=== PATIENT | female | born 1995 | race African-American/Black ===

== ENCOUNTER 2021-09-30 07:02 | Emergency (ER) | payer OTHER ==
[2021-09-30 07:50] LABS: BASOPHIL 0.5 % (0-2); EOSINOPHIL 0.5 % (0-5); HCT 40.4 % (37.0-47.0); HGB 13.6 g/dl (12.5-16.0); LYMPHOCYTE 30.8 % (15-48); MCH 30.2 pg (25.0-31.0); MCHC 33.7 g/dL (32.0-36.0); MCV 89.6 fL (78.0-100.0); MONOCYTE 9.7 % (0-12); MPV 12.6 fL (6.0-9.5); NEUTROPHIL 58.2 % (41-80); NRBC 0; PLT 247 K/uL (150-400); RBC 4.51 M/uL (4.20-5.40); RDW 12.3 % (11.5-14.0)
[2021-09-30 07:51] LABS: BILIRUBIN NEGATIVE (NEGATIVE); BLOOD NEGATIVE Ery/uL (NEGATIVE); CLARITY CLEAR (CLEAR); COLOR YELLOW (YELLOW); GLUCOSE (U) 3+ mg/dL (NORMAL); LEUKOCYTES NEGATIVE Leu/uL (NEGATIVE); NITRITE NEGATIVE (NEGATIVE); PROTEIN NEGATIVE (NEGATIVE); UROBILINOGEN 0.2 mg/dL (0.2-1.0)
[2021-09-30 07:55] LABS: BUN/CREAT RATIO (CALC) 14.3 RATIO; CREATININE 0.77 mg/dL (0.51-0.95); POTASSIUM 4.1 mmol/L (3.5-5.1)
== END 2021-09-30 09:11 | disposition home or self-care (01) ==
LOC: FER 07:02
PROVIDERS: Emergency Medicine
DX: R73.9 Hyperglycemia, unspecified (principal); F41.9 Anxiety disorder, unspecified; F17.290 Nicotine dependence, other tobacco product, uncomplicated; Z88.5 Allergy status to narcotic agent; Z28.311 Partially vaccinated for COVID-19
CPT/HCPCS: 36415; 80048; 81003; 85025; 85379